=== PATIENT | female | born 1945 | race Caucasian/White ===

== ENCOUNTER → 2019-05-07 | Outpatient (CLI) | payer MEDICARE, OTHER ==
[~2019-05-07] MED LIST: ACETAMINOPHEN325 M1 PO; ADDERALL 10 MG10 MG PO; ALLERGY RELIEF10 M3 PO; AMLACTIN140 GM TOP; ARTIFICIAL TEA1 EACH OPHTHALMIC; ASPIRIN EC81 M1 PO; AUGMENTIN 875875 MG PO; B12INJ; BENTYL 10 MG CA10 M1 PO; BENTYL20 MG PO; BETA-VAL 0.1% O45 GM TOP; BETAMETHASONE TOP; CARAFATE 1 GM TA1 G1 PO; CELEBREX 200 M200 MG PO; CIPRO250 M1 PO; CIPROFLOXACIN500 M1 PO; CLEOCIN HCL300 MG PO; COLACE100 MG PO; CYMBALTA20 MG; CYMBALTA20 MG PO; CYMBALTA30 MG PO; DEXEDRINE PO; DEXEDRINE10 MG PO; DEXEDRINE5 MG PO; DEXTROAMPHETAMIN5 M2 PO; DOXYCYCLINE 10100 MG; DOXYCYCLINE 10100 MG PO; EMU-LAC HYDRAT120 ML TOP; EVOXAC30 MG PO; FLEXERIL PO; GAS-X125 MG PO; GAS-X180 MG PO; GLYCOLAX POWDER17 G1 PO; IRON PO; IRON325 PO; ITRACONAZOLE; ITRACONAZOLE 1100 M1; ITRACONAZOLE 1100 M1 INH; ITRACONAZOLE 1100 M1 IR; K-DUR 20 MEQ T20 MEQ PO; KEPPRA 500 MG500 M1 PO; KEPPRA250 MG PO; KLOR-CON 1010 MEQ PO; LASIX 80 MG TAB80 M1 PO; LASIX 80 MG TAB80 MG PO; LEVAQUIN 500 M500 M2 OR; LIDODERM 5%1 PATCH TOP; LIDODERM TOP; LUNESTA2 MG PO; MINOCYCLINE HC100 M2 PO; NEURONTIN 400400 M1 PO; NEURONTIN800 MG PO; NORCO 5-325 TA1 EACH PO; OXYCODONE HCL10 MG PO; OXYCODONE HCL30 MG PO; OXYCONTIN20 M1 PO; OXYCONTIN30 MG PO; OXYCONTIN60 MG PO; OXYCONTIN80 M1 PO; OXYCONTIN80 MG PO; PERCOCET 5-3251 EACH PO; PROAIR HFA8.5 GM INH; ROXICODONE30 M1 PO; ROXICODONE30 MG PO; SENNA PO; SIMETHICON CHEW80 M1 PO; SYNTHROID25 MCG PO; TUMS CHEWA500 MG/11 PO; TYLENOL325 MG PO; VESICARE10 M1 PO; VIBRAMYCIN 100100 M2 PO; VOLTAREN 0.1% EY5 M1; VOLTAREN GEL 1100 G1 TOP; VOLTAREN100 GM; ZANTAC 150MG T150 M1 PO; ZANTAC 150MG T150 MG PO; ZETIA10 MG PO
[2019-05-07 14:58] LABS: HEMATOCRIT 34.1 % (37.0-47.0); HEMOGLOBIN 11.4 gm/dL (12.0-15.0); MCHC 33.5 g/dL (28.0-37.0); MCV 89.5 fL (80.0-100.0); MPV 6.4 fl. (7.2-11.1); RBC 3.81 mil/uL (4.20-5.00); RDW-CV 14.5 % (10.5-14.5); WBC 8.6 thou/uL (4.0-11.0)
[2019-05-07 15:05] VITALS: BP 131/68
[2019-05-07 15:15] LABS: ALBUMIN 3.4 g/dL (3.4-5.0); CALCIUM 8.6 mg/dL (8.5-10.1); POTASSIUM 4.8 mmol/L (3.5-5.1); TOTAL BILIRUBIN 0.2 mg/dL (<0.1-1.0)
[2019-05-07 15:38] VITALS: BP 131/65
--- NOTE | 2019-05-07 15:39 | NUR ---
ARRIVED PER WHEELCHAIR FROM X-RAY. TRANSFERED SELF TO RECLINER WITH EASE. IV STARTED AND LABS DRAWN. INFUSION COMPLETED AND TOLERATED WELL. DISCHARGE INSTRUCTION REVIEWED.
== END ==
LOC: M.INFUS 13:30 → M.RAD 13:30
PROVIDERS: Specialist
DX: T87.89 Other complications of amputation stump (principal); S91.302A Unspecified open wound, left foot, initial encounter; Y83.5 Amputation of limb(s) as the cause of abnormal reaction of the patient, or of later complication, without mention of misadventure at the time of the procedure; Y93.89 Activity, other specified; Y92.89 Other specified places as the place of occurrence of the external cause; Z89.432 Acquired absence of left foot

== ENCOUNTER → 2019-05-08 | Outpatient (CLI) | payer MEDICARE, OTHER ==
[2019-05-08 14:10] VITALS: BP 148/83
[2019-05-08 14:55] VITALS: BP 136/78
--- NOTE | 2019-05-08 14:57 | NUR ---
PATIENT TOLERATED IV INFUSION WELL, IV SITE WITH NO REDNESS, SWELLING OR DRAINAGE AND PAIN FREE. INSTRUCTED TO CALL [facility]ENEER TAPER ONE HOUR IN ADVANCE TO ARRIVAL ON SATURDAY AND SATURDAY SO DAPTOMYCIN CAN BE DILUTED. PATIENT VERBALIZED UNDERSTANDING.
== END ==
LOC: M.INFUS 08:13
DX: S91.302A Unspecified open wound, left foot, initial encounter (principal); Y92.89 Other specified places as the place of occurrence of the external cause; Y93.89 Activity, other specified

== ENCOUNTER → 2019-05-09 | Outpatient (CLI) | payer MEDICARE, OTHER | LOC: M.INFUS 08:00 | DX: S91.302A Unspecified open wound, left foot, initial encounter (principal); Y92.89 Other specified places as the place of occurrence of the external cause; Y93.89 Activity, other specified ==

== ENCOUNTER → 2019-05-10 | Outpatient (CLI) | payer MEDICARE, OTHER | LOC: M.INFUS 08:00 | DX: T87.89 Other complications of amputation stump (principal); S91.302A Unspecified open wound, left foot, initial encounter; Y83.5 Amputation of limb(s) as the cause of abnormal reaction of the patient, or of later complication, without mention of misadventure at the time of the procedure; Y93.89 Activity, other specified; Y92.89 Other specified places as the place of occurrence of the external cause; Z89.432 Acquired absence of left foot ==

== ENCOUNTER → 2019-05-11 | Outpatient (CLI) | payer MEDICARE, OTHER ==
[2019-05-11 13:05] VITALS: BP 162/75
--- NOTE | 2019-05-11 14:53 | NUR ---
ARRIVED AMBULATORY. MADE SELF COMFORTABLE IN RECLINER. IV TO LEFT FA INTACT. PT REPORT TENDERNESS TO AREA AND SIGNS OF PHLEBITIS NOTED. IV REMOVED AND NEW IV PLACED WITH ULTRASOUND TO TOP OF RIGHT FA. TOLERATED WELL. INFUSION COMPLETED AND TOLERATED WELL.
== END ==
LOC: M.INFUS 04:57
DX: S91.302A Unspecified open wound, left foot, initial encounter (principal); Y93.89 Activity, other specified; Y92.89 Other specified places as the place of occurrence of the external cause

== ENCOUNTER → 2019-05-12 | Outpatient (CLI) | payer MEDICARE, OTHER ==
--- NOTE | 2019-05-12 14:23 | NUR ---
ARRIVED AMBULATORY. MADE SELF COMFORTABLE. PORT A CATH ACCESSED WITH OUT DIFFICULTY. GOOD BRISK BLOOD RETURN NOTED AND FLUSHED WITH EASE. LABS DRAWN FROM PORT AND RESULTS CALLED TO DR. MARTINEZ. NEW ORDER RECIEVED TO TRANSFUSE 2PRBC AND 2 HLA MATCHED PLATELETS ON 05/14/19. AFTER TODAY'S TRANSFUSION OF COPMPLETED AND TOLERATED WELL. BLOO DBANK BAND WAS REMOVED. RETYPED AND CROSSED FOR BLOOD TRANSFUSION ON SATURDAY WITH NEW BLOOD BANK ID BAND APPLIED PER LAB STAFF. PT TO HAVE EYE SURGERY TOMORROW AND PER PT AND DR. MARTINEZ REQUEST PIV PLACED USING ULTRASOUND FOR USE TOMORROW DURING PROCEDURE AAS THEY WILL NOT USE PORT. PORT WAS FLUSHED AND LEFT ACCESSED. DENIES NEEDS OR QUESTIONS AT DISCHARGE.
== END ==
LOC: M.INFUS 05:24
DX: S91.302A Unspecified open wound, left foot, initial encounter (principal); Y93.89 Activity, other specified; Y92.89 Other specified places as the place of occurrence of the external cause

== ENCOUNTER → 2019-05-13 | Outpatient (CLI) | payer MEDICARE, OTHER ==
[2019-05-13 11:37] VITALS: BP 162/87
[2019-05-13 12:07] VITALS: BP 146/78
== END ==
LOC: M.INFUS 04:57
DX: S91.302A Unspecified open wound, left foot, initial encounter (principal); Y93.89 Activity, other specified; Y92.89 Other specified places as the place of occurrence of the external cause

== ENCOUNTER → 2019-05-14 | Outpatient (CLI) | payer MEDICARE, OTHER ==
[2019-05-14 11:40] VITALS: BP 122/75
[2019-05-14 12:31] LABS: ABSOLUTE BASOPHILS 0.1 thou/uL (0.0-0.2); ABSOLUTE EOSINOPHILS 0.2 thou/uL (0.0-0.7); ABSOLUTE LYMPHOCYTES 1.5 thou/uL (0.8-5.3); ABSOLUTE MONOCYTES 0.6 thou/uL (0.0-1.2); ABSOLUTE NEUTROPHILS 4.4 thou/uL (1.6-8.1); BASOPHILS 0.8 %; EOSINOPHILS 2.4 %; HEMATOCRIT 35.2 % (37.0-47.0); HEMOGLOBIN 11.5 gm/dL (12.0-15.0); LYMPHOCYTES 22.2 %; MCH 29.1 pg (26.0-34.0); MCHC 32.7 g/dL (28.0-37.0); MCV 89.2 fL (80.0-100.0); MONOCYTES 9.2 %; MPV 5.9 fl. (7.2-11.1); NUCLEATED RBCS 0 /100WBC; PLATELET COUNT* 254 thou/uL (150-400); POLYS 65.4 %; RBC 3.94 mil/uL (4.20-5.00); RDW-CV 14.6 % (10.5-14.5); WBC 6.8 thou/uL (4.0-11.0)
[2019-05-14 12:56] LABS: ALBUMIN 3.2 g/dL (3.4-5.0); CALCIUM 8.8 mg/dL (8.5-10.1); POTASSIUM 4.5 mmol/L (3.5-5.1); TOTAL BILIRUBIN 0.3 mg/dL (<0.1-1.0); TOTAL PROTEIN 6.9 g/dL (6.4-8.2)
--- NOTE | 2019-05-14 13:08 | NUR ---
ARRIVED AMBULATORY WITH FRIEND. IV INTACT AND PATENT TO RIGHT FA. IV INFUSION COMPLTED AND WEEKLY LABS DRAWN. IV FLUSHED AND LEFT INTACT FOR USE TOMORROW. PT TO SEE DR. FARFAN TODAY.
[2019-05-14 13:39] LABS: ESR (SEDRATE) 15 mm/hr (0-30)
== END ==
LOC: M.INFUS 10:33
PROVIDERS: Specialist
DX: S91.302A Unspecified open wound, left foot, initial encounter (principal); Y93.89 Activity, other specified; Y92.89 Other specified places as the place of occurrence of the external cause

== ENCOUNTER → 2019-05-15 | Outpatient (CLI) | payer MEDICARE, OTHER ==
--- NOTE | 2019-05-15 14:33 | NUR ---
RIGHT BASILIC VESSEL ACCESSED FOR 4 [place] SINGLE LUMEN PICC. LINE PRE-TRIMMED TO 47CM BUT UNABLE TO ADVANCE STYLET PAST THE AXILLA. SEVERAL REPEATED ATTEMPTS MADE WITHDRAWING AND ADVANCEING THE STYLET BUT UNABLE TO ADVANCE PAST AXILLA. NEEDLE REMOVED AND PRESSURE HELD FOR 5 MINUTES, GAUZE AND PAPER TRAPE APPLIED. LEFT BASILIC VESSEL ACCESSED FOR 4 [place] SINGLE LUMEN PICC BUT UNABLE TO ADVANCE THE CATHETER PAST AXILLA. LINE WITHDRAWN AND PRESSURE HELD FOR 5 MINUTES, GAUZE AND PAPER TAPE APPLIED. REPORT GIVEN TO DA, REQUISITION MADE TO INTERVENTIONAL RADIOLOGY FOR SATURDAY.
== END ==
LOC: M.INFUS 05:07
DX: S91.302A Unspecified open wound, left foot, initial encounter (principal); Y93.89 Activity, other specified; Y92.89 Other specified places as the place of occurrence of the external cause

== ENCOUNTER → 2019-05-16 | Outpatient (CLI) | payer MEDICARE, OTHER | LOC: M.INFUS 08:00 | DX: S91.302A Unspecified open wound, left foot, initial encounter (principal); Y93.89 Activity, other specified; Y92.89 Other specified places as the place of occurrence of the external cause ==

== ENCOUNTER → 2019-05-17 | Outpatient (CLI) | payer MEDICARE, OTHER | LOC: M.INFUS 08:00 | DX: S91.302A Unspecified open wound, left foot, initial encounter (principal); Y93.89 Activity, other specified; Y92.89 Other specified places as the place of occurrence of the external cause ==

== ENCOUNTER → 2019-05-18 | Outpatient (CLI) | payer MEDICARE, OTHER ==
--- NOTE | 2019-05-18 13:35 | NUR ---
ARRIVED PER WHEELCHAIR. TRANSFERED SELF TO RECLINER. PICC LINE PLACED THIS AM IN IR. DENIES ADVERSE REACTION TO PRIOR INFUSION OF SAME. INFUSION COMPLETED AND TOLERATED WELL. PICC FLUSHED.
== END ==
LOC: M.INT 10:18 → M.INFUS 10:18 → M.INT 13:30
DX: S91.302A Unspecified open wound, left foot, initial encounter (principal); Y93.89 Activity, other specified; Y92.89 Other specified places as the place of occurrence of the external cause

== ENCOUNTER → 2019-05-19 | Outpatient (CLI) | payer MEDICARE, OTHER ==
[2019-05-19 11:30] VITALS: BP 118/63
== END ==
LOC: M.INFUS 04:50
DX: S91.302A Unspecified open wound, left foot, initial encounter (principal); Y93.89 Activity, other specified; Y92.89 Other specified places as the place of occurrence of the external cause

== ENCOUNTER → 2019-05-20 | Outpatient (CLI) | payer MEDICARE, OTHER ==
[2019-05-20 11:35] VITALS: BP 136/80
--- NOTE | 2019-05-20 12:35 | NUR ---
ARRIVED PER WHEELCHAIR. TRANSFERED SELF TO RECLINER. PICC DRESSING BOTTOM HALF NOTED TO BE LOOSE. WITH INSERTION SITE EXPOSED TO AIR. PICC DRESSING CHANGED AND PT EDUCATED ON PROTECTING DRESSING. VOICED UNDERSTANDING AND AGREED. PICC PATENT WITH GOOD BLOOD RETURN AND EASY FLUSH. DENIES ADVERSE REACTION TO PRIOR INFUSIONS OF SAME. INFUSION COMPELTED AND TOLERATED WELL. PICC FLUSHED. DENEIS NEEDS AT DISCHARGE.
== END ==
LOC: M.INFUS 05:04
DX: S91.302A Unspecified open wound, left foot, initial encounter (principal); Y93.89 Activity, other specified; Y92.89 Other specified places as the place of occurrence of the external cause

== ENCOUNTER → 2019-05-21 | Outpatient (CLI) | payer MEDICARE, OTHER ==
[2019-05-21 13:05] VITALS: BP 120/72
[2019-05-21 13:54] LABS: HEMATOCRIT 34.6 % (37.0-47.0); HEMOGLOBIN 11.5 gm/dL (12.0-15.0); MCH 29.5 pg (26.0-34.0); MCHC 33.2 g/dL (28.0-37.0); MPV 6.7 fl. (7.2-11.1); RBC 3.89 mil/uL (4.20-5.00); RDW-CV 14.5 % (10.5-14.5); WBC 6.6 thou/uL (4.0-11.0)
[2019-05-21 14:04] LABS: ALBUMIN 3.2 g/dL (3.4-5.0); POTASSIUM 4.1 mmol/L (3.5-5.1); TOTAL BILIRUBIN 0.2 mg/dL (<0.1-1.0); TOTAL PROTEIN 7.4 g/dL (6.4-8.2)
--- NOTE | 2019-05-21 14:31 | NUR ---
ARRIVED PER WHEELCHAIR. TRANSFERED SELF TO RECLINER WITH STANDBY ASSIST. PICC INTACT AND PATENT. INFUSION COMPLETED AND TOELERATED WELL. DENEIS QUESTIONS OR NEEDS AT DISCHARGE.
== END ==
LOC: M.INFUS 05:24
PROVIDERS: Specialist
DX: S91.302A Unspecified open wound, left foot, initial encounter (principal); Y93.89 Activity, other specified; Y92.89 Other specified places as the place of occurrence of the external cause

== ENCOUNTER → 2019-05-22 | Outpatient (CLI) | payer MEDICARE, OTHER ==
[2019-05-22 14:29] VITALS: BP 126/77
== END ==
LOC: M.INFUS 05:12
DX: S91.302A Unspecified open wound, left foot, initial encounter (principal); Y92.89 Other specified places as the place of occurrence of the external cause; Y93.89 Activity, other specified

== ENCOUNTER → 2019-05-23 | Outpatient (CLI) | payer MEDICARE, OTHER | LOC: M.INFUS 08:00 | DX: S91.302A Unspecified open wound, left foot, initial encounter (principal); Y92.89 Other specified places as the place of occurrence of the external cause; Y93.89 Activity, other specified ==

== ENCOUNTER → 2019-05-24 | Outpatient (CLI) | payer MEDICARE, OTHER | LOC: M.INFUS 08:00 | DX: S91.302A Unspecified open wound, left foot, initial encounter (principal); Y92.89 Other specified places as the place of occurrence of the external cause; Y93.89 Activity, other specified ==

== ENCOUNTER → 2019-05-25 | Outpatient (CLI) | payer MEDICARE, OTHER ==
[2019-05-25 15:18] VITALS: BP 136/78
== END ==
LOC: M.INFUS 05:11
DX: S91.302A Unspecified open wound, left foot, initial encounter (principal); Y93.89 Activity, other specified; Y92.89 Other specified places as the place of occurrence of the external cause

== ENCOUNTER → 2019-05-26 | Outpatient (CLI) | payer MEDICARE, OTHER ==
[2019-05-26 13:09] VITALS: BP 138/65
== END ==
LOC: M.INFUS 04:58
DX: S91.302A Unspecified open wound, left foot, initial encounter (principal); Y92.89 Other specified places as the place of occurrence of the external cause; Y93.89 Activity, other specified

== ENCOUNTER → 2019-05-27 | Outpatient (CLI) | payer MEDICARE, OTHER ==
[2019-05-27 14:00] VITALS: BP 153/92
== END ==
LOC: M.INFUS 05:19
DX: S91.302A Unspecified open wound, left foot, initial encounter (principal); Y93.89 Activity, other specified; Y92.89 Other specified places as the place of occurrence of the external cause

== ENCOUNTER → 2019-05-28 | Outpatient (CLI) | payer MEDICARE, OTHER ==
[2019-05-28 13:30] VITALS: BP 110/78
[2019-05-28 13:54] LABS: ABSOLUTE EOSINOPHILS 0.2 thou/uL (0.0-0.7); ABSOLUTE LYMPHOCYTES 1.3 thou/uL (0.8-5.3); ABSOLUTE MONOCYTES 0.8 thou/uL (0.0-1.2); ABSOLUTE NEUTROPHILS 5.4 thou/uL (1.6-8.1); BASOPHILS 0.6 %; EOSINOPHILS 2.6 %; HEMATOCRIT 31.7 % (37.0-47.0); HEMOGLOBIN 10.6 gm/dL (12.0-15.0); LYMPHOCYTES 16.7 %; MCH 29.5 pg (26.0-34.0); MCHC 33.4 g/dL (28.0-37.0); MCV 88.3 fL (80.0-100.0); MPV 6.6 fl. (7.2-11.1); NUCLEATED RBCS 0 /100WBC; PLATELET COUNT* 221 thou/uL (150-400); POLYS 70.1 %; RBC 3.59 mil/uL (4.20-5.00); RDW-CV 14.2 % (10.5-14.5); WBC 7.6 thou/uL (4.0-11.0)
[2019-05-28 14:08] LABS: ALBUMIN 3.2 g/dL (3.4-5.0); TOTAL BILIRUBIN 0.3 mg/dL (<0.1-1.0); TOTAL PROTEIN 7.1 g/dL (6.4-8.2)
--- NOTE | 2019-05-28 14:21 | NUR ---
ARRIVED PER WHEELCHAIR. TRANSFER SELF TO RECLINER. DUAL LUMAN PICC INTACT WITH DRESSING LIFTING ON TOP EDGE BUT STILL OCCLUSIVE. PICC PATENT. WEEKLY LABS DRAWN AND DRESSING CHANGE DONE. DENEIS ADVERSE REACTION TO INFUSION OF SAME. INFUSION COMPLETED AND TOLERATED WELL. DENIES NEEDS AT DISCHARGE.
[2019-05-28 14:54] LABS: ESR (SEDRATE) 26 mm/hr (0-30)
== END ==
LOC: M.INFUS 04:37
PROVIDERS: Specialist
DX: S91.302A Unspecified open wound, left foot, initial encounter (principal); Y92.89 Other specified places as the place of occurrence of the external cause; Y93.89 Activity, other specified

== ENCOUNTER → 2019-05-29 | Outpatient (CLI) | payer MEDICARE, OTHER ==
[2019-05-29 11:40] VITALS: BP 132/80
--- NOTE | 2019-05-29 14:04 | NUR ---
ARRIVED PER WHEELCHAIR. TRANSFERED SELF TO RECLINER. UNSTEADY GAIT. PICC INTACT AND PATENT WITH NO SIGN OF INFECTION. DENIES ADVERSE REACTION TO PRIOR INFUSION OF SAME. INFUSION COMPELTED AND TOLERATED WELL. DENIES QUESTIONS OR NEEDS AT DISCHARGE.
== END ==
LOC: M.INFUS 04:47
DX: S91.302A Unspecified open wound, left foot, initial encounter (principal); Y93.89 Activity, other specified; Y92.89 Other specified places as the place of occurrence of the external cause

== ENCOUNTER → 2019-05-30 | Outpatient (CLI) | payer MEDICARE, OTHER | LOC: M.INFUS 13:30 | DX: S91.302A Unspecified open wound, left foot, initial encounter (principal); Y93.89 Activity, other specified; Y92.89 Other specified places as the place of occurrence of the external cause ==

== ENCOUNTER → 2019-05-31 | Outpatient (CLI) | payer MEDICARE, OTHER | LOC: M.INFUS 13:30 | DX: S91.302A Unspecified open wound, left foot, initial encounter (principal); Y93.89 Activity, other specified; Y92.89 Other specified places as the place of occurrence of the external cause ==

== ENCOUNTER → 2019-06-01 | Outpatient (CLI) | payer MEDICARE, OTHER | LOC: M.INFUS 01:44 | DX: S91.302A Unspecified open wound, left foot, initial encounter (principal); Y93.89 Activity, other specified; Y92.89 Other specified places as the place of occurrence of the external cause ==

== ENCOUNTER → 2019-06-02 | Outpatient (CLI) | payer MEDICARE, OTHER ==
[2019-06-02 13:55] VITALS: BP 115/81
--- NOTE | 2019-06-02 14:47 | NUR ---
ARRIVED PER WHEELCHAIR. TRANSFERED SELF TO RECLINER. PICC INTACT AND PATENT. INFUSION COMPLETED AND TOLERATED WELL.
== END ==
LOC: M.INFUS 05:34
DX: S91.302A Unspecified open wound, left foot, initial encounter (principal); E11.622 Type 2 diabetes mellitus with other skin ulcer; M14.672 Charcot's joint, left ankle and foot; G60.9 Hereditary and idiopathic neuropathy, unspecified; G89.4 Chronic pain syndrome; Y93.89 Activity, other specified; Y92.89 Other specified places as the place of occurrence of the external cause; Z72.0 Tobacco use

== ENCOUNTER → 2019-06-03 | Outpatient (CLI) | payer MEDICARE, OTHER ==
[2019-06-03 11:10] VITALS: BP 132/74
--- NOTE | 2019-06-03 13:55 | NUR ---
ARRIVED PER WHEELCHAIR. TRANSFERED SELF TO RECLINER. PICC INTACT AND PATENT. INFUSION COMPLETED AND TOLERATED WELL.
== END ==
LOC: M.INFUS 04:57
DX: S91.302A Unspecified open wound, left foot, initial encounter (principal); Y92.89 Other specified places as the place of occurrence of the external cause; Y93.89 Activity, other specified

== ENCOUNTER → 2019-06-04 | Outpatient (CLI) | payer MEDICARE, OTHER ==
[2019-06-04 15:00] VITALS: BP 131/99
[2019-06-04 15:21] LABS: HEMATOCRIT 33.7 % (37.0-47.0)
[2019-06-04 15:28] LABS: MCH 28.5 pg (26.0-34.0); MCHC 32.8 g/dL (28.0-37.0); MCV 87.1 fL (80.0-100.0); MPV 6.8 fl. (7.2-11.1); RBC 3.87 mil/uL (4.20-5.00); RDW-CV 14.1 % (10.5-14.5); WBC 10.9 thou/uL (4.0-11.0)
[2019-06-04 15:36] LABS: ALBUMIN 3.2 g/dL (3.4-5.0); CALCIUM 9.4 mg/dL (8.5-10.1); CREATININE 1.1 mg/dL (0.6-1.3); POTASSIUM 4.5 mmol/L (3.5-5.1); TOTAL BILIRUBIN 0.2 mg/dL (<0.1-1.0); TOTAL PROTEIN 7.5 g/dL (6.4-8.2)
== END ==
LOC: M.INFUS 04:36
PROVIDERS: Specialist
DX: S91.302A Unspecified open wound, left foot, initial encounter (principal); Y93.89 Activity, other specified; Y92.89 Other specified places as the place of occurrence of the external cause

== ENCOUNTER → 2019-06-05 | Outpatient (CLI) | payer MEDICARE, OTHER | LOC: M.INFUS 04:33 | DX: S91.302A Unspecified open wound, left foot, initial encounter (principal); Y92.89 Other specified places as the place of occurrence of the external cause; Y93.89 Activity, other specified ==

== ENCOUNTER → 2019-06-06 | Outpatient (CLI) | payer MEDICARE, OTHER | LOC: M.INFUS 08:00 | DX: S91.302A Unspecified open wound, left foot, initial encounter (principal); Y92.89 Other specified places as the place of occurrence of the external cause; Y93.89 Activity, other specified ==

== ENCOUNTER → 2019-06-07 | Outpatient (CLI) | payer MEDICARE, OTHER | LOC: M.INFUS 13:15 | DX: S91.302A Unspecified open wound, left foot, initial encounter (principal); Y93.89 Activity, other specified; Y92.89 Other specified places as the place of occurrence of the external cause ==

== ENCOUNTER → 2019-06-08 | Outpatient (CLI) | payer MEDICARE, OTHER ==
--- NOTE | 2019-06-08 14:14 | NUR ---
ARRIVED PER WHEELCHAIR. TRANSFERED SELF TO RECLINER. PICC INTACT AND PATENT. DRESSING LIFTING AT TOP AND NO OCCLUSIVE. DRESSING CHANGED PER PROTOCOL. INFUSION COMPLETED AND TOLERATED WELL. DENIES NEEDS AT DISCHARGE.
== END ==
LOC: M.INFUS 04:45
DX: S91.302A Unspecified open wound, left foot, initial encounter (principal); Y92.89 Other specified places as the place of occurrence of the external cause; Y93.89 Activity, other specified

== ENCOUNTER → 2019-06-09 | Outpatient (CLI) | payer MEDICARE, OTHER ==
[2019-06-09 14:03] VITALS: BP 121/61
== END ==
LOC: M.INFUS 05:13
DX: S91.302A Unspecified open wound, left foot, initial encounter (principal); Y92.89 Other specified places as the place of occurrence of the external cause; Y93.89 Activity, other specified

== ENCOUNTER → 2019-06-10 | Outpatient (CLI) | payer MEDICARE, OTHER | LOC: M.RAD 15:27 | DX: J84.9 Interstitial pulmonary disease, unspecified (principal); J92.9 Pleural plaque without asbestos ==

== ENCOUNTER → 2019-06-10 | Outpatient (CLI) | payer MEDICARE, OTHER ==
[2019-06-10 14:30] VITALS: BP 132/74
== END ==
LOC: M.INFUS 04:02
DX: S91.302D Unspecified open wound, left foot, subsequent encounter (principal); X58.XXXD Exposure to other specified factors, subsequent encounter

== ENCOUNTER → 2019-06-11 | Outpatient (CLI) | payer MEDICARE, OTHER ==
[2019-06-11 14:07] VITALS: BP 138/78
[2019-06-11 14:28] VITALS: BP 136/76
== END ==
LOC: M.INFUS 01:15
DX: S91.302D Unspecified open wound, left foot, subsequent encounter (principal); X58.XXXD Exposure to other specified factors, subsequent encounter

== ENCOUNTER → 2019-06-12 | Outpatient (CLI) | payer MEDICARE, OTHER ==
[2019-06-12 13:32] VITALS: BP 108/53
--- NOTE | 2019-06-12 13:42 | NUR ---
PT ARRIVED TO UNIT AT 1315. SETTLED INTO RECLINER. BLOOD DRAWN AND INFUSION STARTED AT 1330.
--- NOTE | 2019-06-12 14:10 | NUR ---
PT DISCHARGED TO HOME. NO COMPLICATIONS DURING STAY. TOLERATED INFUSION WELL.
[2019-06-12 14:29] LABS: HEMATOCRIT 33.3 % (37.0-47.0); HEMOGLOBIN 10.8 gm/dL (12.0-15.0); MCH 28.3 pg (26.0-34.0); MCHC 32.6 g/dL (28.0-37.0); MCV 86.8 fL (80.0-100.0); MPV 6.5 fl. (7.2-11.1); RBC 3.84 mil/uL (4.20-5.00); RDW-CV 13.8 % (10.5-14.5)
[2019-06-12 14:51] LABS: ALBUMIN 2.8 g/dL (3.4-5.0); CALCIUM 9.5 mg/dL (8.5-10.1); CREATININE 0.9 mg/dL (0.6-1.3); POTASSIUM 3.7 mmol/L (3.5-5.1); TOTAL BILIRUBIN 0.2 mg/dL (<0.1-1.0); TOTAL PROTEIN 7.1 g/dL (6.4-8.2)
== END ==
LOC: M.INFUS 01:37
PROVIDERS: Specialist
DX: S91.302A Unspecified open wound, left foot, initial encounter (principal); E11.622 Type 2 diabetes mellitus with other skin ulcer; M14.672 Charcot's joint, left ankle and foot; G89.4 Chronic pain syndrome; L03.119 Cellulitis of unspecified part of limb; Y92.89 Other specified places as the place of occurrence of the external cause; Y93.89 Activity, other specified

== ENCOUNTER → 2019-06-13 | Outpatient (CLI) | payer MEDICARE, OTHER | LOC: M.INFUS 08:00 | DX: S91.302D Unspecified open wound, left foot, subsequent encounter (principal); X58.XXXD Exposure to other specified factors, subsequent encounter ==

== ENCOUNTER → 2019-06-14 | Outpatient (CLI) | payer MEDICARE, OTHER | LOC: M.INFUS 08:00 | DX: S91.302D Unspecified open wound, left foot, subsequent encounter (principal); X58.XXXD Exposure to other specified factors, subsequent encounter ==

== ENCOUNTER → 2019-06-15 | Outpatient (CLI) | payer MEDICARE, OTHER ==
[2019-06-15 13:15] VITALS: BP 125/68
== END ==
LOC: M.INFUS 01:18
DX: S91.302D Unspecified open wound, left foot, subsequent encounter (principal); X58.XXXD Exposure to other specified factors, subsequent encounter

== ENCOUNTER → 2019-06-16 | Outpatient (CLI) | payer MEDICARE, OTHER ==
[2019-06-16 13:10] VITALS: BP 132/71
== END ==
LOC: M.INFUS 05:10
DX: S91.302A Unspecified open wound, left foot, initial encounter (principal); X58.XXXA Exposure to other specified factors, initial encounter; Y92.89 Other specified places as the place of occurrence of the external cause

== ENCOUNTER → 2019-06-17 | Outpatient (CLI) | payer MEDICARE, OTHER ==
[2019-06-17 10:00] VITALS: BP 132/74
--- NOTE | 2019-06-17 12:14 | NUR ---
ARRIVED PER WHEELCHAIR. TRANSFERED SELF TO RECLINER. DUAL LUMAN PICC INTACT AND PATENT. PICC DRESSING NOTED TO BE NON OCCLUSIVE AND BIOPATCH MISSING. INSERTION SITE OPEN TO AIR. DRESSING CHANGED. INFUSION COMPLETED AND TOLERATED WELL. MURIEL QUESTIONS OR NEEDS AT DISCHARGE. REPORTS SCHEDULED APPOINTMANT WITH DR. FARFAN TODAY AT 1400
== END ==
LOC: M.INFUS 05:23
DX: S91.302A Unspecified open wound, left foot, initial encounter (principal); X58.XXXA Exposure to other specified factors, initial encounter; Y92.89 Other specified places as the place of occurrence of the external cause; Y93.89 Activity, other specified